=== PATIENT | female | born 1960 | race Caucasian/White ===

== ENCOUNTER 2018-02-03 08:50 | Inpatient (IN) ==
[~2018-02-03 08:50] MED LIST: DEXTROSE 50% 25 GM/50 ML VIAL IV PRN; GLUCAGON 1 MG VIAL IM PRN
[2018-02-03 09:43] LABS: Basophils # 0.1 10*3/uL (0.0-0.2); Basophils % 0.5 % (0.0-0.8); Eosinophils # 0.2 10*3/uL (0.0-0.87); Eosinophils % 1.8 % (0.00-10.9); Hematocrit 42.8 VOL% (35.7-47.0); Hemoglobin 14.5 GM/DL (12.0-16.0); Immature Granulocytes % 0.2 %; Immature Granulocytes Absolute 0.02 #; Lymphocytes # 1.9 10*3/uL (1.4-4.0); Lymphocytes % 17.5 % (21.3-54.2); Mean Corpuscular HGB Conc 33.9 GM/DL (32-36); Mean Corpuscular Hemoglobin 29 PG (27-34); Mean Corpuscular Volume 86.5 FL (87-102); Monocytes # 0.8 10*3/uL (0.11-0.8); Monocytes % 7.3 % (1.7-12.7); Neutrophils % 72.7 % (38.7-73.9); Platelet Count 161 T/CUMM (130-400); Red Blood Count 4.95 MC/CUMM (3.8-5.5)
[2018-02-03 10:18] LABS: Alanine Aminotransferase 32 U/L (13-56); Albumin 3.7 G/DL (3.4-5.0); Alkaline Phosphatase 92 U/L (45-117); Aspartate Amino Transferase 17 U/L (0-37); Bilirubin,Total < 0.39 MG/DL (0.2-1.0); Blood Urea Nitrogen 19 MG/DL (7-18); Calcium 9.5 MG/DL (8.5-10.1); Glucose 214 MG/DL (74-106); Osmolality,Calculated 286.4 MOS/KG (273-304); Sodium 140 MMOL/L (136-145); Total Protein 7.4 G/DL (6.4-8.3)
[2018-02-03 11:04] LABS: ABG Base Excess -0.5 MMOL/L (-2.5-2.5); ABG Oxygen Saturation 97.4 % (95-100); ABG PCO2 39.9 MM HG (35-48); ABG PH 7.392 (7.35-7.45); ABG PO2 95.8 MM HG (80-95); ABG TCO2 21.1 MMOL/L (23-27)
[2018-02-03] MEDS ORDERED: DIGOXIN 0.125 MG TABLET PO SCH (13:00)
[2018-02-03] MEDS: GABAPENTIN 100 MG CAPSULE PO SCH ×6 (13:19→21:19)
[2018-02-03] MEDS: CARVEDILOL 3.125 MG TABLET PO SCH ×3 (13:34→21:19)
[2018-02-03] MEDS: CHLORHEXIDINE 0.12% ORAL RINSE 60 ML BOTTLE SWISH/SPIT SCH ×2 (13:34→21:19)
[2018-02-03] MEDS: CHLORHEXIDINE 4% SOLN 118 ML BOTTLE TOP SCH ×3 (13:34→21:19)
[2018-02-03] MEDS: ASPIRIN CHEW 81 MG TABLET PO SCH (14:33)
[2018-02-03] MEDS: LISINOPRIL 20 MG TABLET PO SCH (14:34)
[2018-02-03] MEDS ORDERED: SIMVASTATIN 20 MG TABLET PO SCH (21:00)
[2018-02-03] MEDS ORDERED: ZALEPLON 5 MG CAPSULE PO PRN (21:00)
[2018-02-04] MEDS ORDERED: DIAZEPAM 5 MG TABLET PO ONE (05:00)
[2018-02-04] MEDS ORDERED: PANTOPRAZOLE 40 MG TABLET PO ONE (05:00)
[2018-02-04] MEDS ORDERED: PAPAVERINE 60 MG/2 ML VIAL ONE (05:21)
[2018-02-04] MEDS ORDERED: VANCOMYCIN 1,000 MG VIAL ONE (05:22)
[2018-02-04] MEDS ORDERED: SUFentanil 250 MCG/5 ML AMP ONE (05:49)
[2018-02-04] MEDS ORDERED: MIDAZOLAM 10 MG/2 ML VIAL ONE ×2 (05:49→11:11)
[2018-02-04] MEDS: SODIUM CHLORIDE 0.9% 1,000 ML IV SCH (05:52)
[2018-02-04] MEDS ORDERED: CEFUROXIME INJ 1,500 MG in SYRINGE 1 EACH IV ONE (06:00)
[2018-02-04 07:39] LABS: ABG Base Excess 0.9 MMOL/L (-2.5-2.5); ABG HCO3 25.1 MMOL/L (20-26); ABG Oxygen Saturation 99.2 % (95-100); ABG PCO2 38.4 MM HG (35-48); ABG PH 7.433 (7.35-7.45); ABG TCO2 26.3 MMOL/L (23-27); Glucose Heart Surgery 207 MG/DL (74-106); Hemoglobin Heart Surgery 13.1 G/DL (12.0-16.0); Ionized Calcium Arterial 1.07 MMOL/L (1.21-1.46); PCO2 Patient Temp Arterial 38.4 MMHG; PH Patient Temp Arterial 7.433; Patient Temperature 37 CELCIUS; Potassium Heart/CVR 3.8 MMOL/L (3.5-5.1); Sodium Heart/CVR 138 MMOL/L (135-145)
[2018-02-04] MEDS ORDERED: NITROPRUSSIDE 50 MG/2 ML VIAL ONE (08:09)
[2018-02-04] MEDS ORDERED: POTASSIUM CHLORIDE RIDER 100 ML IV ONE (08:10)
[2018-02-04] MEDS ORDERED: CALCIUM CHLORIDE 1,000 MG/10 ML SYRINGE IV ONE (08:10)
[2018-02-04] MEDS ORDERED: PHENYLEPHRINE DRIP 40 MG/250 ML PREMIX IV ONE (08:10)
[2018-02-04] MEDS ORDERED: EPINEPHrine 1 MG/10 ML SYRINGE ONE (08:11)
[2018-02-04 08:13] LABS: Apearance,Urine Slightly Hazy (Clear); Bacteria,Urine Few /HPF (Few); Bilirubin,Urine Negative (Negative); Blood, Urine Small mg/dL (Negative); Glucose,Urine (UA) >=500 mg/dL (Negative); Ketones,Urine 5 mg/dL (Negative); Nitrite,Urine Negative (Negative); Protein,Urine Negative; RBC,Urine 2 /HPF (0-4); Squamous Epithelial Cell,Urine Occasional /HPF (0-10); Urine Color Straw (Yellow); Urine Specific Gravity 1.021 (1.001-1.035); Urine Urobilinogen < 2.0 EU/DL (0.2-1.0); WBC,Urine 59 /HPF (0-6)
[2018-02-04] MEDS ORDERED: HEPARIN/NACL 0.9% 2 UNITS/ML 500 ML IV ONE (09:02)
[2018-02-04] MEDS ORDERED: NITROGLYCERIN DRIP 50 MG/250 ML BOTTLE IV ONE (09:03)
[2018-02-04 09:13] LABS: Hematocrit Heart Surgery 25.4 PERCENT (37-47); Hemoglobin Heart Surgery 8.2 G/DL (12.0-16.0); PCO2 Patient Temp Venous 42.7 MM HG; PH Patient Temp Venous 7.399; PO2 Patient Temp Venous 39.3 MM HG; Potassium Heart/CVR 4.5 MMOL/L (3.5-5.1); VBG Base Excess 1.4 MEQ/L (0-4); VBG HCO3 25.4 MEQ/L (24-28); VBG Oxygen Saturation 74.6 %; VBG PCO2 42.7 MMHG (41-51); VBG PH 7.399; VBG PO2 39.3 MMHG (17-40)
[2018-02-04 09:39] LABS: Hemoglobin Heart Surgery 9.3 G/DL (12.0-16.0); PCO2 Patient Temp Venous 35.7 MM HG; PH Patient Temp Venous 7.467; PO2 Patient Temp Venous 34.1 MM HG; Potassium Heart/CVR 4.5 MMOL/L (3.5-5.1); VBG Base Excess 2.3 MEQ/L (0-4); VBG HCO3 26.2 MEQ/L (24-28); VBG Oxygen Saturation 78.4 %; VBG PCO2 41.2 MMHG (41-51); VBG PH 7.423
[2018-02-04] MEDS ORDERED: ALBUMIN 25% 25 GM/100 ML VIAL IV ONE (10:16)
[2018-02-04] MEDS ORDERED: PHENYLEPHRINE 1 MG/10 ML SYRINGE IV ONE (10:16)
[2018-02-04] MEDS ORDERED: methylPREDNISolone SOD SUC 1,000 MG/8 ML VIAL ONE (10:16)
[2018-02-04] MEDS ORDERED: SODIUM BICARBONATE 50 MEQ/50 ML SYRINGE IV ONE (10:16)
[2018-02-04] MEDS ORDERED: FUROSEMIDE 20 MG/2 ML VIAL ONE (10:16)
[2018-02-04] MEDS ORDERED: PROTAMINE SULFATE 250 MG/25 ML VIAL IV ONE (10:16)
[2018-02-04] MEDS ORDERED: MANNITOL 12.5 GM/50 ML VIAL IV ONE (10:16)
[2018-02-04] MEDS ORDERED: DEXTROSE 5% KCL 20 MEQ 20 MEQ/1,000 ML BAG IV ONE (10:16)
[2018-02-04] MEDS ORDERED: HEPARIN 10,000 UNIT/10 ML VIAL ONE (10:16)
[2018-02-04 10:21] LABS: ABG Base Excess -0.4 MMOL/L (-2.5-2.5); ABG HCO3 24.1 MMOL/L (20-26); ABG Oxygen Saturation 99.6 % (95-100); ABG PCO2 42.9 MM HG (35-48); ABG PH 7.372 (7.35-7.45); ABG TCO2 22.7 MMOL/L (23-27); Glucose Heart Surgery 292 MG/DL (74-106); Hematocrit Heart Surgery 31.4 PERCENT (37-47); Hemoglobin Heart Surgery 10.2 G/DL (12.0-16.0); Ionized Calcium Arterial 1.29 MMOL/L (1.21-1.46); PCO2 Patient Temp Arterial 42.9 MMHG; PH Patient Temp Arterial 7.372; Patient Temperature 37 CELCIUS; Potassium Heart/CVR 3.6 MMOL/L (3.5-5.1); Sodium Heart/CVR 137 MMOL/L (135-145)
[2018-02-04] MEDS ORDERED: SEVOFLURANE 1 UNIT/15 MINUTE INH ONE (11:10)
[2018-02-04] MEDS ORDERED: SODIUM CHLORIDE 0.9% 100 ML IV ONE (11:11)
[2018-02-04] MEDS ORDERED: LACTATED RINGERS 1,000 ML IV ONE (11:11)
[2018-02-04] MEDS ORDERED: VECURONIUM 10 MG VIAL IV ONE (11:11)
[2018-02-04] MEDS ORDERED: SODIUM CHLORIDE 0.9% 1,000 ML IV ONE (11:11)
[2018-02-04] MEDS ORDERED: PHENYLEPHRINE 10 MG/1 ML VIAL IV ONE (11:11)
[2018-02-04] MEDS ORDERED: ETOMIDATE 40 MG/20 ML VIAL IV ONE (11:11)
[2018-02-04] MEDS ORDERED: SODIUM CHLORIDE 0.9% 500 ML IV ONE (11:11)
[2018-02-04] MEDS ORDERED: AMINOCAPROIC ACID 5,000 MG/20 ML VIAL IV ONE (11:11)
[2018-02-04] MEDS ORDERED: MINERAL OIL/PETROLATUM OPH OINT 3.5 GM TUBE ONE (11:12)
[2018-02-04] MEDS ORDERED: PROTAMINE SULFATE 50 MG/5 ML VIAL IV ONE ×2 (11:13→11:50)
[2018-02-04] MEDS ORDERED: MORPHINE 10 MG/1 ML VIAL IV PRN (11:28)
[2018-02-04] MEDS ORDERED: NITROPRUSSIDE 100 MG in DEXTROSE 5% 250 ML IV PRN (11:28)
[2018-02-04] MEDS ORDERED: MORPHINE 4 MG/1 ML VIAL IV PRN (11:28)
[2018-02-04] MEDS ORDERED: INSULIN REGULAR 100 UNIT/ML IV PRN (11:28)
[2018-02-04] MEDS ORDERED: ACETAMINOPHEN 650 MG SUPP RECTAL PRN (11:28)
[2018-02-04] MEDS ORDERED: MAGNESIUM SULF RIDER 4 GM in PREMIX 1 EACH IV PRN (11:28)
[2018-02-04] MEDS ORDERED: DEXTROSE 50% 25 GM/50 ML VIAL IV PRN ×2 (11:28)
[2018-02-04] MEDS ORDERED: VECURONIUM 10 MG VIAL IV PRN ×2 (11:28)
[2018-02-04] MEDS ORDERED: PHENYLEPHRINE DRIP 40 MG/250 ML PREMIX IV PRN (11:28)
[2018-02-04] MEDS ORDERED: MIDAZOLAM 2 MG/2 ML VIAL IV PRN (11:28)
[2018-02-04] MEDS ORDERED: INSULIN REGULAR 100 UNIT/ML IV ONE (11:28)
[2018-02-04] MEDS ORDERED: CALCIUM CHLORIDE 1,000 MG/10 ML SYRINGE IV PRN (11:28)
[2018-02-04] MEDS ORDERED: MIDAZOLAM 10 MG/2 ML VIAL IV PRN (11:28)
[2018-02-04] MEDS ORDERED: SODIUM CHLORIDE 0.45% 1,000 ML IV SCH ×2 (11:28)
[2018-02-04] MEDS ORDERED: MAGNESIUM SULF RIDER 2 GM in PREMIX 1 EACH IV PRN (11:28)
[2018-02-04] MEDS ORDERED: ONDANSETRON 4 MG/2 ML VIAL IV PRN (11:28)
[2018-02-04 11:31] LABS: ABG Base Excess 0.1 MMOL/L (-2.5-2.5); ABG HCO3 24.5 MMOL/L (20-26); ABG Oxygen Saturation 98.5 % (95-100); ABG PCO2 39.1 MM HG (35-48); ABG PH 7.407 (7.35-7.45); Glucose Heart Surgery 241 MG/DL (74-106); Hematocrit Heart Surgery 34.7 PERCENT (37-47); Hemoglobin Heart Surgery 11.2 G/DL (12.0-16.0); Potassium Heart/CVR 3.6 MMOL/L (3.5-5.1)
[2018-02-04 11:33] LABS: Basophils % 0.3 % (0.0-0.8); Eosinophils # 0.1 10*3/uL (0.0-0.87); Eosinophils % 1.2 % (0.00-10.9); Hematocrit 32.1 VOL% (35.7-47.0); Immature Granulocytes % 0.5 %; Immature Granulocytes Absolute 0.05 #; Lymphocytes # 1.3 10*3/uL (1.4-4.0); Lymphocytes % 13.6 % (21.3-54.2); Mean Corpuscular HGB Conc 34.3 GM/DL (32-36); Mean Corpuscular Hemoglobin 30 PG (27-34); Mean Corpuscular Volume 86.5 FL (87-102); Mean Platelet Volume 10.5 FL (9.6-12.0); Monocytes # 0.6 10*3/uL (0.11-0.8); Monocytes % 6.5 % (1.7-12.7); Neutrophils # 7.2 10*3/uL (1.4-7.4); Neutrophils % 77.9 % (38.7-73.9); Red Cell Distribution Width 12.8 % (9.3-17.3); White Blood Count 9.2 T/CUMM (4-12)
[2018-02-04 11:36] LABS: Platelet Count 122 T/CUMM (130-400); Red Blood Count 3.71 MC/CUMM (3.8-5.5)
[2018-02-04] MEDS: POTASSIUM CHLORIDE RIDER 20 MEQ in PREMIX 1 EACH IV PRN ×4 (11:37→19:59)
[2018-02-04 11:44] LABS: PT Patient Result 10.8 SECS; Partial Thromboplastin Time 27.2 SECS (0-40)
[2018-02-04 12:14] LABS: Bilirubin,Total 0.8 MG/DL (0.2-1.0); Calcium 8.6 MG/DL (8.5-10.1); Osmolality,Calculated 290.3 MOS/KG (273-304); Potassium 3.6 MMOL/L (3.5-5.1); Total Protein 5.6 G/DL (6.4-8.3)
[2018-02-04] MEDS: INSULIN REGULAR DRIP 100 ML IV SCH (12:25)
[2018-02-04 12:35] LABS: CKMB % 7.3 %
[2018-02-04] MEDS: LACTATED RINGERS 250 ML IV PRN ×7 (12:38→15:14)
[2018-02-04] MEDS: KETOROLAC 30 MG/1 ML VIAL IV SCH ×3 (12:41→23:45)
[2018-02-04] MEDS: POTASSIUM CHLORIDE RIDER 10 MEQ in PREMIX 1 EACH IV PRN ×2 (12:41→21:00)
[2018-02-04 13:36] LABS: ABG Base Excess -0.1 MMOL/L (-2.5-2.5); ABG HCO3 24.4 MMOL/L (20-26); ABG Oxygen Saturation 99.4 % (95-100); ABG PCO2 36.5 MM HG (35-48); ABG PH 7.425 (7.35-7.45); ABG TCO2 21.4 MMOL/L (23-27); Glucose Heart Surgery 211 MG/DL (74-106); Hematocrit Heart Surgery 34.3 PERCENT (37-47); Hemoglobin Heart Surgery 11.1 G/DL (12.0-16.0); Potassium Heart/CVR 3.7 MMOL/L (3.5-5.1)
[2018-02-04] MEDS: ALBUMIN 5% 12.5 GM in PREMIX 1 EACH IV PRN (13:43)
[2018-02-04 15:20] LABS: ABG Base Excess 0.2 MMOL/L (-2.5-2.5); ABG HCO3 24.6 MMOL/L (20-26); ABG Oxygen Saturation 99.3 % (95-100); ABG PCO2 34.8 MM HG (35-48); ABG PH 7.444 (7.35-7.45); ABG TCO2 21.3 MMOL/L (23-27); Glucose Heart Surgery 189 MG/DL (74-106); Potassium Heart/CVR 3.4 MMOL/L (3.5-5.1)
[2018-02-04] MEDS ORDERED: FUROSEMIDE 40 MG/4 ML VIAL IV ONE (18:31)
[2018-02-04 19:04] LABS: ABG Base Excess -1.8 MMOL/L (-2.5-2.5); ABG HCO3 22.9 MMOL/L (20-26); ABG PH 7.365 (7.35-7.45); ABG TCO2 21.1 MMOL/L (23-27); Glucose Heart Surgery 170 MG/DL (74-106); Potassium Heart/CVR 3.6 MMOL/L (3.5-5.1)
[2018-02-04] MEDS: CEFUROXIME INJ 1,500 MG in SYRINGE 1 EACH IV SCH (19:56)
[2018-02-04] MEDS: CHLORHEXIDINE 0.12% ORAL RINSE 60 ML BOTTLE SWISH/SPIT SCH (21:12)
[2018-02-04 21:26] LABS: CKMB % 5.3 %
[2018-02-04 21:28] LABS: ABG Base Excess -1.4 MMOL/L (-2.5-2.5); ABG HCO3 23.3 MMOL/L (20-26); ABG Oxygen Saturation 98.9 % (95-100); ABG PCO2 41.3 MM HG (35-48); ABG PH 7.369 (7.35-7.45); ABG TCO2 21.4 MMOL/L (23-27); Glucose Heart Surgery 213 MG/DL (74-106); Hematocrit Heart Surgery 34.7 PERCENT (37-47); Hemoglobin Heart Surgery 11.2 G/DL (12.0-16.0); Potassium Heart/CVR 5.1 MMOL/L (3.5-5.1)
[2018-02-04 22:09] LABS: ABG Base Excess -1.8 MMOL/L (-2.5-2.5); ABG HCO3 23.1 MMOL/L (20-26); ABG Oxygen Saturation 98.3 % (95-100); ABG PCO2 40.1 MM HG (35-48); ABG PH 7.379 (7.35-7.45); ABG PO2 170.8 MM HG (80-95); ABG TCO2 24.4 MMOL/L (23-27); Glucose Heart Surgery 234 MG/DL (74-106); Hemoglobin Heart Surgery 11.2 G/DL (12.0-16.0); Potassium Heart/CVR 4.9 MMOL/L (3.5-5.1)
[2018-02-04 22:49] LABS: ABG Base Excess -2.8 MMOL/L (-2.5-2.5); ABG Oxygen Saturation 98.3 % (95-100); ABG PCO2 41.9 MM HG (35-48); ABG PH 7.343 (7.35-7.45); ABG TCO2 20.5 MMOL/L (23-27); Glucose Heart Surgery 243 MG/DL (74-106); Hematocrit Heart Surgery 34.3 PERCENT (37-47); Hemoglobin Heart Surgery 11.1 G/DL (12.0-16.0); Potassium Heart/CVR 4.3 MMOL/L (3.5-5.1)
[2018-02-05] MEDS: INSULIN REGULAR DRIP 100 ML IV SCH (02:05)
[2018-02-05] MEDS: ALBUMIN 5% 12.5 GM in PREMIX 1 EACH IV PRN ×2 (02:15→02:49)
[2018-02-05] MEDS ORDERED: FUROSEMIDE 40 MG/4 ML VIAL IV ONE (03:32)
[2018-02-05 04:58] LABS: ABG Base Excess -0.2 MMOL/L (-2.5-2.5); ABG HCO3 24.2 MMOL/L (20-26); ABG Oxygen Saturation 98.5 % (95-100); ABG PCO2 39.9 MM HG (35-48); ABG PH 7.397 (7.35-7.45); ABG TCO2 22.3 MMOL/L (23-27); Glucose Heart Surgery 144 MG/DL (74-106); Hematocrit Heart Surgery 31.4 PERCENT (37-47); Hemoglobin Heart Surgery 10.2 G/DL (12.0-16.0); Potassium Heart/CVR 3.9 MMOL/L (3.5-5.1)
[2018-02-05 05:17] LABS: Basophils % 0.1 % (0.0-0.8); Hematocrit 29.9 VOL% (35.7-47.0); Hemoglobin 9.9 GM/DL (12.0-16.0); Immature Granulocytes % 0.7 %; Immature Granulocytes Absolute 0.08 #; Lymphocytes # 0.8 10*3/uL (1.4-4.0); Lymphocytes % 6.7 % (21.3-54.2); Mean Corpuscular HGB Conc 33.1 GM/DL (32-36); Mean Corpuscular Hemoglobin 29 PG (27-34); Mean Corpuscular Volume 88.2 FL (87-102); Monocytes # 0.8 10*3/uL (0.11-0.8); Monocytes % 6.5 % (1.7-12.7); Platelet Count 106 T/CUMM (130-400); Red Blood Count 3.39 MC/CUMM (3.8-5.5); Red Cell Distribution Width 13.3 % (9.3-17.3); White Blood Count 11.6 T/CUMM (4-12)
[2018-02-05] MEDS: POTASSIUM CHLORIDE RIDER 20 MEQ in PREMIX 1 EACH IV PRN (05:30)
[2018-02-05] MEDS: KETOROLAC 30 MG/1 ML VIAL IV SCH ×4 (05:32→23:00)
[2018-02-05 05:37] LABS: CKMB % 4.5 %
[2018-02-05 05:40] LABS: Albumin 3.8 G/DL (3.4-5.0); Bilirubin,Direct 0.1 MG/DL (0.0-0.20); Bilirubin,Total 0.4 MG/DL (0.2-1.0); Calcium 8.5 MG/DL (8.5-10.1); Osmolality,Calculated 292.8 MOS/KG (273-304); Total Protein 6.4 G/DL (6.4-8.3)
[2018-02-05] MEDS: POTASSIUM CHLORIDE RIDER 10 MEQ in PREMIX 1 EACH IV PRN (06:01)
[2018-02-05] MEDS: CEFUROXIME INJ 1,500 MG in SYRINGE 1 EACH IV SCH (07:49)
[2018-02-05] MEDS: CHLORHEXIDINE 0.12% ORAL RINSE 60 ML BOTTLE SWISH/SPIT SCH ×2 (08:28→20:43)
[2018-02-05] MEDS ORDERED: SODIUM CHLOR 0.45% KCL 20 MEQ 20 MEQ/1,000 ML BAG IV SCH (10:00)
[2018-02-05] MEDS ORDERED: ONDANSETRON 4 MG/2 ML VIAL IV PRN (10:00)
[2018-02-05] MEDS ORDERED: ACETAMINOPHEN 325 MG TABLET PO PRN (10:00)
[2018-02-05] MEDS ORDERED: MAGNESIUM HYDROXIDE SUSP 30 ML UDCUP PO PRN (10:00)
[2018-02-05] MEDS ORDERED: ZALEPLON 5 MG CAPSULE PO PRN (10:00)
[2018-02-05] MEDS ORDERED: GLUCAGON 1 MG VIAL IM PRN ×2 (10:00)
[2018-02-05] MEDS ORDERED: ALUMINUM/MAGNES/SIMETH MAX STR 30 ML UDCUP PO PRN (10:00)
[2018-02-05] MEDS ORDERED: MAGNESIUM SULF RIDER 4 GM in PREMIX 1 EACH IV PRN (10:00)
[2018-02-05] MEDS ORDERED: DEXTROSE 50% 25 GM/50 ML VIAL IV PRN ×2 (10:00)
[2018-02-05] MEDS ORDERED: MAGNESIUM SULF RIDER 2 GM in PREMIX 1 EACH IV PRN (10:00)
[2018-02-05] MEDS: METOPROLOL SUCCINATE XL 25 MG TABLET PO SCH (10:23)
[2018-02-05] MEDS: PANTOPRAZOLE 20 MG TABLET PO SCH (10:30)
[2018-02-05] MEDS: ASPIRIN EC 81 MG TABLET PO SCH (10:30)
[2018-02-05] MEDS: MULTIVITAMIN (CENTRUM) TABLET PO SCH (10:30)
[2018-02-05] MEDS: FERROUS SULFATE 325 MG TABLET PO SCH (10:30)
[2018-02-05] MEDS: DOCUSATE SODIUM 100 MG CAPSULE PO SCH (10:30)
[2018-02-05] MEDS: LISINOPRIL 20 MG TABLET PO SCH (12:15)
[2018-02-05] MEDS: LEVOFLOXACIN 500 MG TABLET PO SCH (12:43)
[2018-02-05] MEDS: INSULIN REGULAR 100 UNIT/ML SUBCUT SCH ×3 (12:43→20:37)
[2018-02-05] MEDS: INSULIN ASPART PROTAMINE/ASPART 70/30 100 UNIT/ML SUBCUT SCH (17:49)
[2018-02-05] MEDS ORDERED: CEFUROXIME INJ 1,500 MG in SYRINGE 1 EACH IV ONE (20:00)
[2018-02-05] MEDS: INSULIN GLARGINE 100 UNIT/ML SUBCUT SCH (20:37)
[2018-02-05] MEDS: ROSUVASTATIN 10 MG TABLET PO SCH (20:38)
[2018-02-06] MEDS: INSULIN REGULAR 100 UNIT/ML SUBCUT SCH ×7 (00:16→23:39)
[2018-02-06 03:51] LABS: Basophils % 0.1 % (0.0-0.8); Hematocrit 27.2 VOL% (35.7-47.0); Immature Granulocytes % 1.2 %; Immature Granulocytes Absolute 0.13 #; Lymphocytes # 1.1 10*3/uL (1.4-4.0); Lymphocytes % 10.2 % (21.3-54.2); Mean Corpuscular HGB Conc 33.1 GM/DL (32-36); Mean Corpuscular Hemoglobin 30 PG (27-34); Mean Corpuscular Volume 90.1 FL (87-102); Mean Platelet Volume 10.7 FL (9.6-12.0); Monocytes % 9.1 % (1.7-12.7); Neutrophils # 8.4 10*3/uL (1.4-7.4); Neutrophils % 79.4 % (38.7-73.9); Platelet Count 109 T/CUMM (130-400); Red Blood Count 3.02 MC/CUMM (3.8-5.5); Red Cell Distribution Width 13.2 % (9.3-17.3); White Blood Count 10.6 T/CUMM (4-12)
[2018-02-06] MEDS: KETOROLAC 30 MG/1 ML VIAL IV SCH ×4 (03:52→21:48)
[2018-02-06 04:23] LABS: Alanine Aminotransferase 36 U/L (13-56); Albumin 3.2 G/DL (3.4-5.0); Alkaline Phosphatase 55 U/L (45-117); Aspartate Amino Transferase 48 U/L (0-37); Bilirubin,Direct < 0.050 MG/DL (0.0-0.20); Bilirubin,Indirect 0.3 MG/DL (0.0-1.0); Bilirubin,Total < 0.39 MG/DL (0.2-1.0); Blood Urea Nitrogen 37 MG/DL (7-18); CKMB % 2.5 %; Calcium 7.8 MG/DL (8.5-10.1); Glucose 202 MG/DL (74-106); Osmolality,Calculated 297.1 MOS/KG (273-304); Potassium 4.2 MMOL/L (3.5-5.1); Sodium 142 MMOL/L (136-145); Total Protein 5.8 G/DL (6.4-8.3)
[2018-02-06] MEDS ORDERED: FUROSEMIDE 40 MG/4 ML VIAL IV ONE (06:00)
[2018-02-06] MEDS: SODIUM CHLORIDE 0.9% 1,000 ML IV SCH (07:14)
[2018-02-06] MEDS: INSULIN ASPART PROTAMINE/ASPART 70/30 100 UNIT/ML SUBCUT SCH ×2 (08:58→17:37)
[2018-02-06] MEDS: MULTIVITAMIN (CENTRUM) TABLET PO SCH (08:59)
[2018-02-06] MEDS: ASPIRIN EC 81 MG TABLET PO SCH (08:59)
[2018-02-06] MEDS: PANTOPRAZOLE 20 MG TABLET PO SCH (08:59)
[2018-02-06] MEDS: MULTIVITAMIN (BEROCCA) TABLET PO SCH (08:59)
[2018-02-06] MEDS: DOCUSATE SODIUM 100 MG CAPSULE PO SCH (08:59)
[2018-02-06] MEDS: FERROUS SULFATE 325 MG TABLET PO SCH (08:59)
[2018-02-06] MEDS: LISINOPRIL 20 MG TABLET PO SCH ×2 (08:59→09:40)
[2018-02-06] MEDS: METOPROLOL SUCCINATE XL 25 MG TABLET PO SCH (08:59)
[2018-02-06] MEDS: LEVOFLOXACIN 500 MG TABLET PO SCH (08:59)
[2018-02-06] MEDS ORDERED: MULTIVIT MIN PO SCH (09:00)
[2018-02-06] MEDS ORDERED: VIT C PO SCH (09:00)
[2018-02-06] MEDS ORDERED: ASCORB SOD PO SCH (09:00)
[2018-02-06] MEDS: CHLORHEXIDINE 0.12% ORAL RINSE 60 ML BOTTLE SWISH/SPIT SCH ×3 (09:02→21:48)
[2018-02-06] MEDS: GABAPENTIN 100 MG CAPSULE PO SCH (09:39)
[2018-02-06] MEDS: CARVEDILOL 3.125 MG TABLET PO SCH (09:39)
[2018-02-06] MEDS: ASPIRIN CHEW 81 MG TABLET PO SCH (09:39)
[2018-02-06] MEDS ORDERED: LISINOPRIL 20 MG TABLET PO SCH (19:32)
[2018-02-06] MEDS ORDERED: SODIUM CHLORIDE 0.9% 1,000 ML IV SCH (21:00)
[2018-02-06] MEDS: INSULIN GLARGINE 100 UNIT/ML SUBCUT SCH (21:22)
[2018-02-06] MEDS: ROSUVASTATIN 10 MG TABLET PO SCH (21:23)
[2018-02-07] MEDS: INSULIN REGULAR 100 UNIT/ML SUBCUT SCH ×5 (03:55→21:38)
[2018-02-07] MEDS: KETOROLAC 30 MG/1 ML VIAL IV SCH ×4 (03:55→21:39)
[2018-02-07 05:28] LABS: Eosinophils % 0.2 % (0.00-10.9); Hematocrit 26.6 VOL% (35.7-47.0); Hemoglobin 8.6 GM/DL (12.0-16.0); Immature Granulocytes % 0.6 %; Immature Granulocytes Absolute 0.05 #; Lymphocytes # 1.5 10*3/uL (1.4-4.0); Lymphocytes % 17.3 % (21.3-54.2); Mean Corpuscular HGB Conc 32.3 GM/DL (32-36); Mean Corpuscular Hemoglobin 30 PG (27-34); Mean Corpuscular Volume 91.4 FL (87-102); Mean Platelet Volume 10.9 FL (9.6-12.0); Monocytes % 11.2 % (1.7-12.7); Neutrophils % 70.7 % (38.7-73.9); Platelet Count 133 T/CUMM (130-400); Red Blood Count 2.91 MC/CUMM (3.8-5.5); Red Cell Distribution Width 13.2 % (9.3-17.3); White Blood Count 8.5 T/CUMM (4-12)
[2018-02-07 06:00] LABS: Alanine Aminotransferase 53 U/L (13-56); Albumin 2.9 G/DL (3.4-5.0); Alkaline Phosphatase 59 U/L (45-117); Aspartate Amino Transferase 53 U/L (0-37); Bilirubin,Indirect 0.3 MG/DL (0.0-1.0); Blood Urea Nitrogen 45 MG/DL (7-18); Calcium 7.7 MG/DL (8.5-10.1); Glucose 115 MG/DL (74-106); Osmolality,Calculated 295.1 MOS/KG (273-304); Potassium 3.6 MMOL/L (3.5-5.1); Sodium 142 MMOL/L (136-145); Total Protein 5.6 G/DL (6.4-8.3)
[2018-02-07] MEDS: POTASSIUM CHLORIDE 20 MEQ TABLET PO PRN ×2 (06:09→09:19)
[2018-02-07] MEDS: PANTOPRAZOLE 20 MG TABLET PO SCH (09:19)
[2018-02-07] MEDS: LEVOFLOXACIN 500 MG TABLET PO SCH (09:19)
[2018-02-07] MEDS: FERROUS SULFATE 325 MG TABLET PO SCH (09:19)
[2018-02-07] MEDS: ASPIRIN EC 81 MG TABLET PO SCH (09:20)
[2018-02-07] MEDS: DOCUSATE SODIUM 100 MG CAPSULE PO SCH (09:20)
[2018-02-07] MEDS: CHLORHEXIDINE 0.12% ORAL RINSE 60 ML BOTTLE SWISH/SPIT SCH ×2 (09:23→21:39)
[2018-02-07] MEDS: INSULIN ASPART PROTAMINE/ASPART 70/30 100 UNIT/ML SUBCUT SCH ×2 (09:30→17:22)
[2018-02-07] MEDS: MULTIVITAMIN (BEROCCA) TABLET PO SCH (09:31)
[2018-02-07] MEDS: MULTIVITAMIN (CENTRUM) TABLET PO SCH (09:33)
[2018-02-07] MEDS: ROSUVASTATIN 10 MG TABLET PO SCH (21:38)
[2018-02-07] MEDS: INSULIN GLARGINE 100 UNIT/ML SUBCUT SCH (21:39)
[2018-02-08] MEDS: INSULIN REGULAR 100 UNIT/ML SUBCUT SCH ×6 (01:00→21:51)
[2018-02-08] MEDS: KETOROLAC 30 MG/1 ML VIAL IV SCH (03:58)
[2018-02-08] MEDS: MULTIVITAMIN (CENTRUM) TABLET PO SCH (08:47)
[2018-02-08] MEDS: INSULIN ASPART PROTAMINE/ASPART 70/30 100 UNIT/ML SUBCUT SCH ×2 (08:47→17:35)
[2018-02-08] MEDS: ASPIRIN EC 81 MG TABLET PO SCH (08:47)
[2018-02-08] MEDS: DOCUSATE SODIUM 100 MG CAPSULE PO SCH (08:47)
[2018-02-08] MEDS: LEVOFLOXACIN 500 MG TABLET PO SCH (08:47)
[2018-02-08] MEDS: MULTIVITAMIN (BEROCCA) TABLET PO SCH (08:49)
[2018-02-08] MEDS: FERROUS SULFATE 325 MG TABLET PO SCH (08:49)
[2018-02-08] MEDS: CHLORHEXIDINE 0.12% ORAL RINSE 60 ML BOTTLE SWISH/SPIT SCH ×2 (08:51→21:51)
[2018-02-08] MEDS: PANTOPRAZOLE 20 MG TABLET PO SCH (10:14)
[2018-02-08] MEDS: oxyCODONE/ACETAMINOPHEN 5-325 MG TABLET PO PRN (21:51)
[2018-02-08] MEDS: ROSUVASTATIN 10 MG TABLET PO SCH (21:51)
[2018-02-08] MEDS: INSULIN GLARGINE 100 UNIT/ML SUBCUT SCH (21:51)
[2018-02-09] MEDS: INSULIN REGULAR 100 UNIT/ML SUBCUT SCH ×6 (01:44→21:04)
[2018-02-09 05:24] LABS: Basophils % 0.5 % (0.0-0.8); Eosinophils # 0.3 10*3/uL (0.0-0.87); Eosinophils % 3.4 % (0.00-10.9); Hemoglobin 8.9 GM/DL (12.0-16.0); Immature Granulocytes % 1.2 %; Immature Granulocytes Absolute 0.09 #; Lymphocytes # 1.7 10*3/uL (1.4-4.0); Lymphocytes % 23.1 % (21.3-54.2); Mean Corpuscular Hemoglobin 29 PG (27-34); Mean Corpuscular Volume 88.8 FL (87-102); Mean Platelet Volume 10.5 FL (9.6-12.0); Monocytes # 0.7 10*3/uL (0.11-0.8); Monocytes % 9.8 % (1.7-12.7); NRBC # 0.07 10*3/uL; Neutrophils # 4.5 10*3/uL (1.4-7.4); Platelet Count 190 T/CUMM (130-400); Red Blood Count 3.04 MC/CUMM (3.8-5.5); Red Cell Distribution Width 13.5 % (9.3-17.3); White Blood Count 7.3 T/CUMM (4-12)
[2018-02-09 05:44] LABS: Alanine Aminotransferase 38 U/L (13-56); Albumin 2.8 G/DL (3.4-5.0); Alkaline Phosphatase 74 U/L (45-117); Aspartate Amino Transferase 15 U/L (0-37); Bilirubin,Indirect 0.3 MG/DL (0.0-1.0); Blood Urea Nitrogen 22 MG/DL (7-18); Calcium 8.2 MG/DL (8.5-10.1); Glucose 125 MG/DL (74-106); Osmolality,Calculated 284.3 MOS/KG (273-304); Sodium 141 MMOL/L (136-145); Total Protein 5.6 G/DL (6.4-8.3)
[2018-02-09] MEDS: INSULIN ASPART PROTAMINE/ASPART 70/30 100 UNIT/ML SUBCUT SCH ×2 (09:45→16:06)
[2018-02-09] MEDS: FERROUS SULFATE 325 MG TABLET PO SCH (09:45)
[2018-02-09] MEDS: ASPIRIN EC 81 MG TABLET PO SCH (09:45)
[2018-02-09] MEDS: MULTIVITAMIN (CENTRUM) TABLET PO SCH (09:45)
[2018-02-09] MEDS: LEVOFLOXACIN 500 MG TABLET PO SCH (09:45)
[2018-02-09] MEDS: DOCUSATE SODIUM 100 MG CAPSULE PO SCH (09:45)
[2018-02-09] MEDS: PANTOPRAZOLE 20 MG TABLET PO SCH (09:45)
[2018-02-09] MEDS: MULTIVITAMIN (BEROCCA) TABLET PO SCH (09:45)
[2018-02-09] MEDS: CHLORHEXIDINE 0.12% ORAL RINSE 60 ML BOTTLE SWISH/SPIT SCH ×2 (10:07→21:06)
[2018-02-09] MEDS: oxyCODONE/ACETAMINOPHEN 5-325 MG TABLET PO PRN ×2 (12:21→21:03)
[2018-02-09] MEDS: ROSUVASTATIN 10 MG TABLET PO SCH (21:03)
[2018-02-09] MEDS: INSULIN GLARGINE 100 UNIT/ML SUBCUT SCH (21:04)
[2018-02-10] MEDS: INSULIN REGULAR 100 UNIT/ML SUBCUT SCH ×3 (01:00→08:56)
[2018-02-10] MEDS: oxyCODONE/ACETAMINOPHEN 5-325 MG TABLET PO PRN (02:54)
[2018-02-10 05:15] LABS: Basophils % 0.4 % (0.0-0.8); Eosinophils # 0.3 10*3/uL (0.0-0.87); Eosinophils % 3.9 % (0.00-10.9); Hemoglobin 8.6 GM/DL (12.0-16.0); Immature Granulocytes Absolute 0.08 #; Lymphocytes # 1.6 10*3/uL (1.4-4.0); Lymphocytes % 19.2 % (21.3-54.2); Mean Corpuscular HGB Conc 33.1 GM/DL (32-36); Mean Corpuscular Hemoglobin 30 PG (27-34); Mean Platelet Volume 10.3 FL (9.6-12.0); Monocytes % 12.2 % (1.7-12.7); NRBC # 0.02 10*3/uL; Neutrophils # 5.2 10*3/uL (1.4-7.4); Neutrophils % 63.3 % (38.7-73.9); Platelet Count 184 T/CUMM (130-400); Red Blood Count 2.89 MC/CUMM (3.8-5.5); Red Cell Distribution Width 13.3 % (9.3-17.3); White Blood Count 8.1 T/CUMM (4-12)
[2018-02-10 05:52] LABS: Alanine Aminotransferase 30 U/L (13-56); Albumin 2.7 G/DL (3.4-5.0); Alkaline Phosphatase 69 U/L (45-117); Aspartate Amino Transferase 12 U/L (0-37); Bilirubin,Indirect 0.3 MG/DL (0.0-1.0); Bilirubin,Total < 0.39 MG/DL (0.2-1.0); Blood Urea Nitrogen 16 MG/DL (7-18); Calcium 8.5 MG/DL (8.5-10.1); Glucose 69 MG/DL (74-106); Osmolality,Calculated 281.1 MOS/KG (273-304); Potassium 3.6 MMOL/L (3.5-5.1); Sodium 142 MMOL/L (136-145); Total Protein 5.9 G/DL (6.4-8.3)
[2018-02-10 08:51] VITALS: BP 109/56
[2018-02-10] MEDS: DOCUSATE SODIUM 100 MG CAPSULE PO SCH (08:55)
[2018-02-10] MEDS: PANTOPRAZOLE 20 MG TABLET PO SCH (08:55)
[2018-02-10] MEDS: MULTIVITAMIN (BEROCCA) TABLET PO SCH (08:55)
[2018-02-10] MEDS: ASPIRIN EC 81 MG TABLET PO SCH (08:55)
[2018-02-10] MEDS: MULTIVITAMIN (CENTRUM) TABLET PO SCH (08:55)
[2018-02-10] MEDS: LEVOFLOXACIN 500 MG TABLET PO SCH (08:55)
[2018-02-10] MEDS: INSULIN ASPART PROTAMINE/ASPART 70/30 100 UNIT/ML SUBCUT SCH (08:55)
[2018-02-10] MEDS: FERROUS SULFATE 325 MG TABLET PO SCH (08:55)
[2018-02-10] MEDS: CHLORHEXIDINE 0.12% ORAL RINSE 60 ML BOTTLE SWISH/SPIT SCH (08:56)
== END 2018-02-10 11:30 | disposition home health service (06) | DRG 236 ==
LOC: N.4E 08:50 → N.CVR 02-04 10:36 → N.ICU 02-05 07:12 → N.TELES 02-06 13:12